=== PATIENT | male | born 1960 | race Caucasian/White ===

== ENCOUNTER 2021-09-07 15:56 | Outpatient (CLI) | payer BC, SELFPAY ==
--- NOTE | ~2021-09-07 | XR_ITS ---
XR hip LT min 2V 09/07/2021 16:32 Indication: Left hip pain Procedure: 2 views left hip Comparison: No prior studies for comparison. Findings: There is moderate osteoarthritis of the left hip. No fracture, subluxation or dislocation. No soft tissue abnormality. Impression: 1: Moderate osteoarthritis of the left hip. Reviewed, dictated and finalized at location A. STITCH BINDER Impression: 1: Moderate osteoarthritis of the left hip.
== END 2021-09-07 15:57 | disposition home or self-care (01) ==
LOC: CHSIMG 15:59
PROVIDERS: PCP Internal Medicine; Visit Provider Internal Medicine
DX: M25.552 Pain in left hip (principal)
CPT/HCPCS: 73502

== ENCOUNTER 2021-10-11 01:09 | Day surgery (SDC) | payer BC, SELFPAY ==
[2021-10-10 16:15] VITALS: BMI 48.9
[2021-10-11] VITALS (27 sets, daily range): BP systolic 103–154; BP diastolic 52–95; PULSE 62–80; RESP 12–21; TEMP 36.3–36.7; O2SAT 95–99; BMI 48.6
[2021-10-11] MEDS: SODIUM CHLORIDE 0.9% IV 500 ML 100 ML IV CONT (07:22)
[2021-10-11 07:24] LABS: Basophils Absolute Auto 0.1 K/mm3 (0.0-0.1); Basophils Percent Auto 0.8 % (0.2-1.2); Eosinophils Absolute Auto 0.1 K/mm3 (0-0.3); Eosinophils Percent Auto 2.1 % (0-4.4); Hematocrit 41.4 % (42.0-52.0); Immature Granulocyte Absolute 0.02 K/mm3 (0.00-0.031); Immature Granulocyte Percent A 0.3 % (0-0.5); Lymphocytes Absolute Auto 1.26 K/mm3 (0.9-3.2); Mean Corpuscular HGB Conc 33.8 g/dl (32-36); Mean Corpuscular Volume 85.9 fl (80-100); Mean Platelet Volume 8.3 fl (7.4-10.4); Monocytes Absolute Auto 0.8 K/mm3 (0.1-0.6); Monocytes Percent Auto 11.3 % (2.6-8.5); Neutrophils Absolute Auto 4.4 K/mm3 (1.3-6.7); Neutrophils Percent Auto 66.5 % (45.5-73.1); Platelet Count Result 310 k/mm3 (150-375); Red Blood Count 4.82 M/mm3 (4.6-6.20); Red Cell Distribution Width 14.9 % (11.5-14.5); White Blood Count 6.6 K/mm3 (4.5-10.0)
[2021-10-11 07:33] LABS: Anion Gap 5 mmol/L (8-16); Blood Urea Nitrogen 40 mg/dL (9-20); Calcium 9.1 mg/dL (8.4-10.2); Carbon Dioxide 27 mmol/L (22-30); Chloride 104 mmol/L (98-107); Estimated CRCL calculation 62 ml/min; Estimated Glomerular Filt Rate 41; Glucose 121 mg/dL (65-110); Potassium 4.1 mmol/L (3.4-5.0); Sodium 136 mmol/L (137-145)
[2021-10-11 07:48] LABS: Prothrombin Time 12.7 Seconds (11.1-14.7)
--- NOTE | 2021-10-11 08:26 | WPDHPUPDATE1 ---
History and Physical Update Update Date/Time: 10/11/21 08:26 Patient with a history of CAD by catheterization in 2012 presenting with progressive dyspnea exertion. Recent stress test shows apical inferior and apical ischemia, EF 57%. Did not improve with increase medical therapy and we are pursuing cardiac catheterization. Increased medical therapy has resulted in more lightheadedness. Of note, his creatinine today was 1 7; it was 0.9 in April 2021. History and Physical has been reviewed, including an updated exam of the patient. Other than above, there are no changes in the patient's condition. Risks, benefits, and alternatives have been discussed and questions answered. Patient agrees to proceed with procedure. Reviewed possible risks and complications with patient including breathing problems, bleeding problems, blood vessel problems, unanticipated surgery, allergic reactions, kidney problems, CVA, [place], and among others. Discussed possibility of stenting and possible need for DAPT. Discussed the possibility that if DAPT is interrupted stent thrombosis can occur resulting in heart attack and . Patient understands risks and desires to proceed.
--- NOTE | 2021-10-11 08:29 | WPDMODSED ---
Moderate Sedation Note-Pt Data Patient Data Diagnosis: Mr. Jose Phillips this 61-year-old male with known moderate right coronary artery disease, 50-60% stenosis in 2012, EF 60% at that time, treated medically. He also has hypertension and hyperlipidemia. Says been treated medically but has noted increasing IRVING. I increased his carvedilol for his hypertension and for treatment of coronary disease but that has resulted in some lightheadedness. Lexiscan stress test showed a small area of mild to moderate apical inferior and apical ischemia, EF 57%. The desires to pursue cardiac catheterization and possible PCI. Of note his creatinine was 1.7, up from 0.9 in April. Present Complaint: Dyspnea on exertion, known CAD, stress test showing apical and inferior apical ischemia. Procedure to be performed/Plan: Left heart catheterization Conscious sedation Allergies Allergy/AdvReac Type Severity Reaction Status Date / Time No Known Allergies Allergy Verified 10/11/21 07:14 Home Medications Medication Instructions Recorded Confirmed Type amlodipine [Norvasc] 5 mg PO DAILY 10/11/21 10/11/21 History aspirin [Adult Low Dose Aspirin] 81 mg PO DAILY 10/11/21 10/11/21 History carvedilol [Coreg] 37.5 mg PO BID 10/11/21 10/11/21 History losartan-hydrochlorothiazide See Rx Instructions .ROUTE .COMPLEX 10/11/21 10/11/21 History [Hyzaar] rosuvastatin [Crestor] 40 mg PO DAILY 10/11/21 10/11/21 History tamsulosin [Flomax] 0.4 mg PO DAILY 10/11/21 10/11/21 History trazodone 50 mg PO DAILY 10/11/21 10/11/21 History Current Medications: Active Medications Sodium Chloride (Normal Saline Iv) 500 mls @ 100 mls/hr IV CONT .Q5H SIVAKUMAR Last Admin: 10/11/21 07:22 Dose: 100 mls/hr Documented by: Sedation/Anesthesia: No previous sedation/anesthesia problems (including family history). 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 Smoking status: Former smoker Tobacco type: cigarettes Second hand tobacco smoke exposure: No Additional smoking assessment comments: Quit 2002 Alcohol intake: current Substance use: never Substance use type: does not use Living arrangements: alone Spiritual care concerns: No Mod Sed Physical Exam Physical Exam Pre Procedural Exam: Normal: Appearance (Obese), Eyes, Ears, Nose, Neck, Throat, Airway, Lungs, Heart Size, Heart Rate, Heart Rhythm, Neuro Exam, Abdomen, Extremities (Dorsalis pedis pulses intact but decreased) and Skin Hours since solid foods: 12 Hours since liquid intake: 12 Mallampati Classification: class III Internal Medicine - PN: Obj Da Vital Signs Vital Signs: Vital Signs - 24 hr 10/11/21 07:14 Temperature 97.3 F L Pulse Rate 74 Respiratory Rate 21 H Blood Pressure 135/81 Pulse Oximetry 98 Meds/Results Medications: Active Medications Generic Name Dose Route Start Last Admin Trade Name Freq PRN Reason Stop Dose Admin Sodium Chloride 500 mls @ 100 mls/hr 10/11/21 07:00 10/11/21 07:22 Normal Saline Iv IV CONT 100 mls/hr .Q5H SIVAKUMAR Administration Labs CBC & Chem 7: 10/11/21 07:13 10/11/21 07:13 Labs: Laboratory Results - last 24 hr 10/11/21 10/11/21 10/11/21 07:13 07:13 07:13 WBC 6.6 RBC 4.82 Hgb 14.0 Hct 41.4 L MCV 85.9 MCH 29.0 MCHC 33.8 RDW 14.9 H Plt Count 310 MPV 8.3 Immature Gran % (Auto) 0.3 Neut % (Auto) 66.5 Lymph % (Auto) 19.0 [place] % (Auto) 11.3 H Eos % (Auto) 2.1 Baso % (Auto) 0.8
--- NOTE | 2021-10-11 09:29 | PM.OP ---
Procedure Note - Brief Procedure Note - Brief Date of procedure: 10/11/21 Pre-op diagnosis: abnormal stress test Post-op diagnosis: Same Procedure performed: Conscious sedation Left heart catheterization Description of procedure: Moderate-appearing right coronary artery disease--to be evaluated by Dr. Lara calvillo/ IFR to see if PCI would be beneficial and appropriate Anesthesia: local ( with conscious sedation) Surgeon: Lizette Rhoades MD Condition: Stable Disposition: Same day
--- NOTE | 2021-10-11 09:30 | WPDCARDPROC ---
Cardiac Cath Procedure Note Date of procedure:: 10/11/21 Performing physician:: Lizette Rhoades MD Indication:: history of CAD, stress test showing inferior apical and apical ischemia Brief clinical history:: Patient with known CAD, hypertension, hyperlipidemia and morbid obesity was had progressive dyspnea on exertion. Recent stress test showed inferior apical and apical ischemia, normal ejection fraction. Patient desires to no if he has had progressive coronary disease and would like to proceed with PCI if possible to help with his IRVING. Procedure Procedure performed:: 1. Conscious sedation 2. Left heart catheterization 3. Selective Coronary angiography 4. Left ventriculography 5. Angiography the right common femoral artery Access site:: Right femoral artery Estimated blood loss:: 5 cc Procedure note:: Site: Right femoral artery Catheters: 5 [place] arterial sheath, 5 [place] 4 cm right and left Lizeth catheters, 5 [place] pigtail catheter Conscious sedation: The patient has no known prior history of adverse affects of conscious sedation. Oropharynx was clear. The patient is deemed a good candidate for conscious sedation. Conscious sedation began at: 0850 Conscious sedation ended at: 0922 Total conscious sedation time: 32 minutes Medications: Versed 2 mg, fentanyl 100 mcg IV The patient had continuous hemodynamic monitoring, and was also continuously monitored by:Isaiah Walker RN The patient tolerated conscious sedation well. Detailed procedure: After informed consent the patient brought to the stores laborer and the right femoral area was prepped and draped in the usual fashion. After conscious sedation and local anesthesia the right femoral artery was punctured and cannulated with the arterial sheath. Selective Coronary angiography was performed with the coronary catheters in multiple projections. These were withdrawn. The pigtail catheter was advanced into the central circulation and left ventricle for pressure measurements. Left ventriculography was not performed because of the kidney disease. This was withdrawn. Later angiography the right common femoral artery was performed the sheath was at the bifurcation. Dr. Bermudez was asked to evaluate the significance of the right coronary artery lesion. He proceed with IFR and FFR, which is detailed in a separate report, and the lesion did not to see appear to be significantly flow limiting. Thus I recommended we continue medical therapy. Later the arterial sheath will be removed and hemostasis was obtained using local pressure. The patient tolerated the procedure well with no complications. Estimated blood loss was negligible. Findings: Pressures: Aortic pressure 120/70. LV pressure 115/14 mmHg. Right coronary artery: Large vessel, supplying the inferior wall, inferior apical area and lateral wall. 50-60% mid RCA stenosis. Some mild plaquing of the distal RCA and posterolateral system. Left coronary artery left main, Left anterior descending and circumflex vessels were widely patent and free of disease. Left ventriculogram: Not done Femoral artery angiogram: No significant lesions. Sheath was at the bifurcation. IFR and FFR, performed by Dr. Bermudez, results in a separate report Assessment and Plan Assessment and plan (1) CAD (coronary artery disease): Code(s): I25.10 - Atherosclerotic heart disease of [place] coronary artery without angina pectoris Status: Acute Assessment and Plan: Catheterization findings: Stable CAD. 50-60% right coronary artery stenosis, not flow limiting by FFR or IFR. Normal left coronary system Normal pressures. (2) Hypertension: Code(s): I10 - Essential (primary) hypertension Status: Acute (3) Hypercholesterolemia: Code(s): E78.00 - Pure hypercholesterolemia, unspecified Status: Acute (4) Chronic kidney disease: Code(s): N18.9 - Chronic kidney disease, unspec
[2021-10-11] MEDS: SODIUM CHLORIDE 0.9% IV 1,000 ML 125 ML IV CONT (10:52)
--- NOTE | 2021-10-11 11:32 | WPDCARDPROC ---
Cardiac Cath Procedure Note Date of procedure:: 10/11/21 Performing physician:: Agustin Bermudez MD Date of service 10/11/2021 Indication:: Abnormal stress test Brief clinical history:: This 61-year-old patient with past history of morbid obesity, hypertension, hyperlipidemia who was evaluated by Dr. Rhoades for shortness of breath on exertion. Underwent stress test that shows inferior ischemia. Dr. Rhoades has just finished cathing this patient and there was intermediate lesion found in the mid RCA that I was asked to further evaluate. The lesion appears to be 50-60% mid RCA Procedure Procedure performed:: 1-moderate sedation that started at 9:22 a.m. and ended at 9:59 a.m. total duration 37 minutes using 1 mg of Versed and 25 mcg of fentanyl. The registered nurse was leonila loredo. 2-selective right coronary angiogram 3-IFR of mid RCA lesion 4-FFR of the mid RCA lesion. Sedation/Medication given:: Moderate sedation as described above Access site:: Right femoral artery Estimated blood loss:: 10 cc Procedure note:: The 5 [place] femoral sheath was upgraded to 6 [place] sheath over wire. Then after that we took a guide catheter JR4 and advanced to the aortic root. IFR wire was zeroed outside the body and then advanced to the aortic root where normalization of pressures done. Subsequently the IFR wire was advanced to distal RCA. Measurement of IFR was 0.91 . Because this lesion is borderline by IFR we decided to proceed with FFR. The pressure wire was retrieved again into the aortic root and normalization pressures done again. Pressure was advanced again across the mid RCA lesion to the distal part of the RCA and then infusion of adenosine intravenous was done. Total infusion of about 3-1/2 minutes. FFR at maximum hyperemia was 0.88 which is negative for ischemia. Findings:: -selective right coronary angiogram shows that the right coronary artery is large and in the mid segment there is an area of about 50-60% focal stenosis. Right PDA and RPL with minimal irregularities. -IFR was 0.91 and FFR was 0.88 Conclusion:: -Mid RCA lesion not significant by IFR or FFR. -false positive stress test. 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 Cecilio boateng.
--- NOTE | 2021-10-11 11:40 | WPDMODSED ---
Moderate Sedation Note-Pt Data Patient Data Allergies Allergy/AdvReac Type Severity Reaction Status Date / Time No Known Allergies Allergy Verified 10/11/21 07:14 Home Medications Medication Instructions Recorded Confirmed Type amlodipine [Norvasc] 5 mg PO DAILY 10/11/21 10/11/21 History aspirin [Adult Low Dose Aspirin] 81 mg PO DAILY 10/11/21 10/11/21 History carvedilol [Coreg] 25 mg PO BID #0 tablet 10/11/21 10/11/21 Rx losartan-hydrochlorothiazide See Rx Instructions .ROUTE .COMPLEX 10/11/21 10/11/21 History [Hyzaar] rosuvastatin [Crestor] 40 mg PO DAILY 10/11/21 10/11/21 History tamsulosin [Flomax] 0.4 mg PO DAILY 10/11/21 10/11/21 History trazodone 50 mg PO DAILY 10/11/21 10/11/21 History Current Medications: Active Medications Hydrocodone Bitart/Acetaminophen (Hydrocodone/Acetaminophen (*Crx) 5-325 Mg Tablet) 1 tab PO Q4-6H PRN PRN Reason: Pain Rated 1-3 Hydrocodone Bitart/Acetaminophen (Hydrocodone/Acetaminophen (*Crx) 5-325 Mg Tablet) 2 tab PO Q4-6H PRN PRN Reason: Pain Rated 4-6 Sodium Chloride (Normal Saline Iv) 500 mls @ 100 mls/hr IV CONT .Q5H SIVAKUMAR Last Infusion: 10/11/21 09:30 Dose: 0 mls/hr Documented by: Sodium Chloride (Normal Saline Iv) 1,000 mls @ 125 mls/hr IV CONT .Q8H ONE Stop: 10/11/21 18:24 Last Admin: 10/11/21 10:52 Dose: 125 mls/hr Documented by: Sedation/Anesthesia: No previous sedation/anesthesia problems (including family history). 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 Smoking status: Former smoker Tobacco type: cigarettes Second hand tobacco smoke exposure: No Additional smoking assessment comments: Quit 2002 Alcohol intake: current Substance use: never Substance use type: does not use Living arrangements: alone Spiritual care concerns: No Mod Sed Physical Exam Physical Exam Pre Procedural Exam: Normal: Appearance, Eyes, Ears, Nose, Neck, Throat, Airway, Lungs, Heart Size, Heart Rate, Heart Rhythm, Neuro Exam, Abdomen, Liver, Kidneys, Spleen, Breasts, Genitalia, Extremities and Skin Hours since solid foods: 8 Hours since liquid intake: 8 Mallampati Classification: class II Internal Medicine - PN: Obj Da Vital Signs Vital Signs: Vital Signs - 24 hr 10/11/21 07:14 10/11/21 10:24 10/11/21 10:30 Temperature 36.3 C L 36.7 C Pulse Rate 74 68 68 Pulse Rate [Left Posterior Tibial Doppler] 68 Respiratory Rate 21 H 13 18 Blood Pressure 135/81 110/72 118/83 Pulse Oximetry 98 97 97 10/11/21 10:45 10/11/21 11:00 10/11/21 11:15 Temperature Pulse Rate 71 73 73 Pulse Rate [Left Posterior Tibial Doppler] Respiratory Rate 12 13 19 Blood Pressure 105/71 113/65 118/73 Pulse Oximetry 95 95 95 10/11/21 11:30 Temperature Pulse Rate 65 Pulse Rate [Left Posterior Tibial Doppler] Respiratory Rate 13 Blood Pressure 129/68 Pulse Oximetry 96 Intake/Output Intake/Output: Intake & Output 10/08/21 10/09/21 10/10/21 10/11/21 23:59 23:59 23:59 23:59 Intake Total 0 Balance 0 Meds/Results Medications: Active Medications Generic Name Dose Route Start Last Admin Trade Name Freq PRN Reason Stop Dose Admin Hydrocodone Bitart/Acetaminophen 1 tab 10/11/21 10:25 Hydrocodone/Acetaminophen (*Crx) 5-325 Mg Tablet PO Q4-6H PRN Pain Rated 1-3 Hydrocodone Bitart/Acetaminophen 2 tab 10/11/21 10:25 Hydrocodone/Acetaminophen (*Crx) 5-325 Mg Tablet PO Q4-6H PRN Pain Rated 4-6 Sodium Chloride 500 mls @ 100 mls/hr 10/11/21 07:0
--- NOTE | 2021-10-11 11:40 | WPDHPUPDATE1 ---
History and Physical Update Update Date/Time: 10/11/21 11:40 History and Physical has been reviewed, including an updated exam of the patient. There are NO changes in the patient's condition. Risks, benefits, and alternatives have been discussed and questions answered. Patient agrees to proceed with procedure.
[2021-10-11] MEDS: HYDROcodone/acetaminophen (*CRX) 5-325 MG TABLET 2 TAB PO (13:19)
--- NOTE | 2021-10-11 14:18 | SUR.PREOP ---
0800 Dr. Rhoades at bedside talking with patient and brother. MD was made aware of lab values and elevated creatinine of 1.7. MD also made aware of weak pedal/PT pulses that were able to be found via doppler.
--- NOTE | 2021-10-11 17:00 | SUR.PHASEII ---
1535 Compressor Station Chief Engineer at bedside giving patient information regarding advanced directives per his request.
== END 2021-10-11 16:40 | disposition home or self-care (01) ==
PROVIDERS: Internal Medicine Cardiovascular Disease; PCP Internal Medicine; Visit Provider Internal Medicine Cardiovascular Disease
PROC: 4A023N7 Measurement of Cardiac Sampling and Pressure, Left Heart, Percutaneous Approach (ICD-10-PCS; CPT 93452; principal; 2021-10-11 08:30)
PROC: 4A033BC Measurement of Arterial Pressure, Coronary, Percutaneous Approach (ICD-10-PCS; CPT 93571; 2021-10-11 08:30)
DX: I25.10 Atherosclerotic heart disease of native coronary artery without angina pectoris (principal); I10 Essential (primary) hypertension; E78.5 Hyperlipidemia, unspecified; R06.02 Shortness of breath; F41.9 Anxiety disorder, unspecified; M81.0 Age-related osteoporosis without current pathological fracture; R53.83 Other fatigue; R73.01 Impaired fasting glucose; D50.0 Iron deficiency anemia secondary to blood loss (chronic); Z79.82 Long term (current) use of aspirin; E78.00 Pure hypercholesterolemia, unspecified; R06.00 Dyspnea, unspecified
CPT/HCPCS: 36415; 80048; 85025; 85610; 93458; 93571; A9270; C1769; C1887; C1894; J0583; J1644; J2250; J3010; J7030; J7040

== ENCOUNTER 2022-06-20 01:01 | Day surgery (SDC) | payer BC, SELFPAY ==
[2022-06-12 10:56] VITALS: BMI 46.1
[2022-06-20 07:44] VITALS: BP 153/91; PULSE 78; RESP 18; TEMP 36.3; O2SAT 96
[2022-06-20] MEDS: LACTATED RINGERS 1,000 ML 150 ML IV CONT (07:52)
--- NOTE | 2022-06-20 07:53 | WPDANESEPPF ---
Anes - Initial Pre Proc Eval Procedure: Operation Date: 06/20/22 09:00 Proposed Procedures p Esophagogastroduodenoscopy & Colonoscopy - Lele Hines DO Date/Time: 06/20/22 07:53 Surgeon: Lele Hines DO Pre Op Diagnosis: anemia Patient Data Age: 61 Gender: M Height: 1.78 m Weight: 158.4 kg Last Vital Signs Temp 36.3 C L 06/20/22 07:44 Pulse 78 06/20/22 07:44 Resp 18 06/20/22 07:44 BP 153/91 H 06/20/22 07:44 Pulse Ox 96 06/20/22 07:44 O2 Del Method Room Air 06/20/22 07:44 Allergies Allergy/AdvReac Type Severity Reaction Status Date / Time No Known Allergies Allergy Verified 06/20/22 07:43 Home Medications Medication Instructions Recorded Confirmed Type amlodipine 5 mg tablet (Norvasc) 5 mg PO DAILY 10/11/21 06/12/22 History aspirin 81 mg tablet,delayed 81 mg PO DAILY 10/11/21 06/12/22 History release (Adult Low Dose Aspirin) carvedilol 25 mg tablet (Coreg) 25 mg PO BID #0 tabs 10/11/21 06/12/22 Rx losartan 100 See Rx Instructions .Route .COMPLEX 10/11/21 06/12/22 History mg-hydrochlorothiazide 12.5 mg tablet (Hyzaar) rosuvastatin 40 mg tablet (Crestor) 40 mg PO DAILY 10/11/21 06/12/22 History tamsulosin 0.4 mg capsule (Flomax) 0.4 mg PO DAILY 10/11/21 06/12/22 History trazodone 50 mg tablet 50 mg PO DAILY 10/11/21 06/12/22 History ezetimibe 10 mg tablet 10 mg PO DAILY 06/12/22 06/12/22 History Patient hx anesthesia problems: none Family hx anesthesia problems: none Results Review: All pre-operative results and documents have been reviewed as part of the pre-operative evaluation. 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 Smoking status: Never smoker Tobacco type: cigarettes Second hand tobacco smoke exposure: No Additional smoking assessment comments: Quit 2001 Alcohol intake: current Substance use: never Substance use type: does not use Living arrangements: alone Spiritual care concerns: No Anes - Eval Final PreProcedure Day of Procedure 06/20/22 07:53 Patient weight: morbidly obese Heart: regular rate and rhythm Lungs: clear to auscultation and normal air movement Airway: Mallampati scale class II Neurological: alert and oriented Last oral intake: >/= 8 hours ASA classification: III Emergent: no Anesthetic plan: proceed Anesthesia type and monitoring: general GIVS Results Review: All pre-operative results and documents have been reviewed as part of the pre-operative evaluation. Informed Consent: The patient's anesthetic plan and its attendant risks and benefits were discussed with the patient/family/POA. Questions were solicited and answers provided to the satisfaction of the patient/family/POA.
--- NOTE | 2022-06-20 08:38 | PM.IMHP ---
H&P: HPI History of Present Illness Date/Time: 06/20/22 08:38 Chief Complaint: anemia, bright red blood per rectum Narrative: this is a 61-year-old man who presents for EGD and colonoscopy. He was recently found to be anemic. He does occasionally have bright red blood per rectum after bowel movements that he thinks is related to hemorrhoids. He denies any upper abdominal pain, acid reflux, or heartburn. He does think he has a family history of colon cancer in his father. His last colonoscopy was 11 years ago. Review of Systems Review of Systems: All systems reviewed & are unremarkable except as noted in HPI and below Constitutional: Constitutional: Denies chills, Denies fever(s), Denies headache(s) and Denies weight loss Eyes: Eyes: Denies change in vision ENT: Denies dizziness, Denies headache(s), Denies neck mass and Denies throat swelling Cardiovascular: Cardiovascular: Denies chest pain, Denies lightheadedness and Denies dyspnea Respiratory: Respiratory: Denies cough, Denies dyspnea and Denies wheezing Gastrointestinal: Gastrointestinal: Denies abdominal pain, Denies change in bowel habits, Denies nausea and Denies vomiting Genitourinary: Genitourinary: Denies hematuria and Denies dysuria Musculoskeletal: Musculoskeletal: Reports as per HPI Integumentary/Breasts: Skin/Breast: Reports as per HPI Neurologic: Denies dizziness and Denies headache(s) Allergic/Immunologic: Allergic/Immunologic: Denies throat swelling and Denies wheezing PMF Past Medical History Medical History (Updated 06/20/22 @ 08:40 by Lele Hines DO) CAD (coronary artery disease) Chronic kidney disease Hypercholesterolemia Hypertension Morbid obesity with BMI of 50.0-59.9, adult Family History Family History Mother Pacemaker Kidney disease Father Heart disease [place] age 57 Pancreatic cancer Cause of Social History Social History 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 Smoking status: Never smoker Tobacco type: cigarettes Second hand tobacco smoke exposure: No Additional smoking assessment comments: Quit 2001 Alcohol intake: current Substance use: never Substance use type: does not use Living arrangements: alone Spiritual care concerns: No Meds Home Medications and Allergies Home Medications Medication Instructions Recorded Confirmed Type amlodipine 5 mg tablet (Norvasc) 5 mg PO DAILY 10/11/21 06/12/22 History aspirin 81 mg tablet,delayed 81 mg PO DAILY 10/11/21 06/12/22 History release (Adult Low Dose Aspirin) carvedilol 25 mg tablet (Coreg) 25 mg PO BID #0 tabs 10/11/21 06/12/22 Rx losartan 100 See Rx Instructions .Route .COMPLEX 10/11/21 06/12/22 History mg-hydrochlorothiazide 12.5 mg tablet (Hyzaar) rosuvastatin 40 mg tablet (Crestor) 40 mg PO DAILY 10/11/21 06/12/22 History tamsulosin 0.4 mg capsule (Flomax) 0.4 mg PO DAILY 10/11/21 06/12/22 History trazodone 50 mg tablet 50 mg PO DAILY 10/11/21 06/12/22 History ezetimibe 10 mg tablet 10 mg PO DAILY 06/12/22 06/12/22 History Allergies Allergy/AdvReac Type Severity Reaction Status Date / Time No Known Allergies Allergy Verified 06/20/22 07:43 Vital Signs Vital Signs - 24 hr 06/20/22 07:44 Temperature 36.3 C L Pulse Rate 78 Respiratory Rate 18 Blood Pressure 153/91 H Pulse Oximetry 96 Oxygen Delivery Room Air Exam Const: General: no acute distress and alert Orientation/consciousness: patient oriented x3 HENMT: Head: normocephalic and atraumatic Ears: hearing grossly normal bilaterally Face/Nose/Sinus: Normal nares present Mouth: Yes Normal oral and palatal mucosa present Eyes: Periorbital: periorbital findings normal Sclera: sclerae normal EOM: EOMs intact bilaterally Neck: Neck: normal visual inspection, no lymphadenopathy and trachea midline Chest: Chest palp
[2022-06-20 09:09] VITALS: BP 110/68; PULSE 74; RESP 18; O2SAT 100
[2022-06-20 09:19] VITALS: BP 118/73; PULSE 80; RESP 20; O2SAT 100
[2022-06-20 09:29] VITALS: BP 123/77; PULSE 71; RESP 20; O2SAT 100
== END 2022-06-20 09:39 | disposition home or self-care (01) ==
PROVIDERS: PCP Internal Medicine; Visit Provider Surgery
PROC: 0DJ08ZZ Inspection of Upper Intestinal Tract, Via Natural or Artificial Opening Endoscopic (ICD-10-PCS; CPT 43235; principal; 2022-06-20 09:00)
DX: D50.9 Iron deficiency anemia, unspecified (principal); K62.5 Hemorrhage of anus and rectum; K57.30 Diverticulosis of large intestine without perforation or abscess without bleeding; K64.8 Other hemorrhoids; Z86.010 Personal history of colon polyps; I12.9 Hypertensive chronic kidney disease with stage 1 through stage 4 chronic kidney disease, or unspecified chronic kidney disease; N18.9 Chronic kidney disease, unspecified; E78.00 Pure hypercholesterolemia, unspecified; I25.10 Atherosclerotic heart disease of native coronary artery without angina pectoris; Z79.82 Long term (current) use of aspirin; E66.01 Morbid (severe) obesity due to excess calories; Z68.43 Body mass index [BMI] 50.0-59.9, adult
CPT/HCPCS: 45378; 43235; J2704; J7120

== ENCOUNTER 2023-04-30 15:25 | Outpatient (CLI) | payer BC, SELFPAY ==
--- NOTE | ~2023-04-30 | XR_ITS ---
EXAMINATION: XR lumbar spine 2-3V DATE: 04/30/2023 15:47 INDICATION: Low back pain. TECHNIQUE: 3 views of lumbar spine were obtained. COMPARISON: None. FINDINGS: There is 21 degrees levoscoliosis of thoracolumbar spine. There is mild chronic height loss of T11-L2 vertebral bodies. There is mildly decreased disc height at T12-L1, moderately decreased di sc height at L3-L4, and severely decreased disc height at L4-L5. There are endplate osteophytes at al l levels. There is multilevel moderate facet joint osteoarthritis. IMPRESSION: 1. Severe lumbar spondylosis. 2. Lumbar levoscoliosis. Reviewed, dictated and finalized at location E.
--- NOTE | ~2023-04-30 | XR_ITS ---
EXAMINATION: XR hip LT min 2V DATE: 04/30/2023 15:47 INDICATION: Left hip pain. TECHNIQUE: 2 views of left hip were obtained. COMPARISON: Left hip radiographs 09/07/2021 FINDINGS: There is lumbar levoscoliosis and severe spondylosis. No fracture. There is moderate left h ip osteoarthritis. Osteitis pubis is noted. Surgical clips overlie the pelvis. IMPRESSION: 1. Moderate left hip osteoarthritis, stable from 09/07/2021. Reviewed, dictated and finalized at location E.
== END 2023-04-30 15:26 | disposition home or self-care (01) ==
PROVIDERS: PCP Internal Medicine; Visit Provider Internal Medicine
DX: M54.50 Low back pain, unspecified (principal); M25.552 Pain in left hip; M43.06 Spondylolysis, lumbar region; M41.86 Other forms of scoliosis, lumbar region; M16.12 Unilateral primary osteoarthritis, left hip
CPT/HCPCS: 72100; 73502

== ENCOUNTER 2023-05-20 13:57 | Outpatient (CLI) | payer BC, SELFPAY ==
--- NOTE | ~2023-05-20 | XR_ITS ---
EXAMINATION: XR lg joint inject/asp w image DATE: 05/20/2023 14:35 INDICATION: Left hip pain. TECHNIQUE: A time-out was performed to verify the patient's name, date of , and procedure to b e performed. The procedure including the risks, benefits, and alternatives was discussed with the pat ient. Risks discussed included bleeding and infection. The patient understood the risks and agreed to proceed. The skin overlying the left hip joint was prepped and draped in usual sterile fashion. An esthetic was administered with 1% lidocaine subcutaneously. A 22 G needle was advanced under fluoros copic guidance into the joint. Subsequently, injectate consisting of 5 mL 1% lidocaine, 1 mL 40 mg/m L Kenalog, and 1 mL 4 mg/mL dexamethasone was instilled. The needle was removed and the entry site w as cleaned and dressed. There were no immediate complications. Fluoroscopy exposure time was 0.1 min utes. The total number of images was 1. FINDINGS: Real-time fluoroscopy demonstrates the needle in the left hip joint. Patient's pain prior t o procedure:10/14. Patient's pain following the procedure: 10/14. IMPRESSION: 1. Fluoroscopy guided left hip joint injection of local anesthetic and steroid. Reviewed, dictated and finalized at location A. [employer]
== END 2023-05-20 13:58 | disposition home or self-care (01) ==
PROVIDERS: PCP Internal Medicine; Visit Provider Internal Medicine
DX: M25.552 Pain in left hip (principal)
CPT/HCPCS: 20610; 77002; J1100; J3301